=== PATIENT | male | born 2000 | race African-American/Black ===

== ENCOUNTER 2023-01-31 18:56 | Emergency (ER) | payer BC ==
[2023-01-31 20:34] LABS: SARS-CoV-2 NAA Rapid Test Not Detected (NotDetected)
[2023-01-31] MEDS ORDERED: Acetaminophen 500 MG TAB ONE (20:43)
[2023-01-31] MEDS ORDERED: Ondansetron ODT 4 MG TAB ONE (20:43)
== END 2023-01-31 20:54 | disposition home or self-care (01) ==
LOC: CSHERS 18:56
DX: J10.1 Influenza due to other identified influenza virus with other respiratory manifestations (principal); M54.50 Low back pain, unspecified; Z20.822 Contact with and (suspected) exposure to COVID-19
CPT/HCPCS: 99283; Q0162